=== PATIENT | male | born 1970 | race Caucasian/White ===

== ENCOUNTER 2017-03-07 11:01 | Emergency (ER) | END 2017-03-07 12:32 | disposition home or self-care (01) ==

== ENCOUNTER 2018-07-19 09:44 | Day surgery (SDC) | payer BC ==
[~2018-07-19] VITALS: Ht 165.1 cm; Wt 88.0 kg
[~2018-07-19 09:44] MED LIST: FAMO-96 PO; LORA-186 PO; OMEP20CA16 PO
[2018-07-19 10:19] VITALS: BP 119/74; PULSE 85; RESP 18
[2018-07-19 10:20] VITALS: Ht 165.1 cm; Wt 88.0 kg
--- NOTE | 2018-07-19 10:42 | PREAC ---
Date/Time of Note Date/Time of Note DATE: 07/19/18 TIME: 10:42 Anesthesia Eval and Record Evaluation Time Pre-Procedure Interview DATE: 07/19/18 TIME: 10:42 Age 47 Sex male NPO: 8 hrs Preoperative diagnosis abd pain rectal bleeding Planned procedure egd colonoscopy Past Medical History Past Medical History: None Surgery & Anesthesia Issues No known issue Meds Anticoagulation: No Beta Mike within 24 hr: No Reason Beta Mike not given: Pt. not on B-Mike Active Scripts Loratadine* (Claritin*) 10 Mg Tablet, 10 MG PO DAILY, #30 TAB Prov:JESSICA CAMPOS PA-C 03/07/17 Omeprazole* (Omeprazole*) 20 Mg Capsule.dr, 20 MG PO DAILY, #20 Prov:JESSICA CAMPOS PA-C 03/07/17 Famotidine* (Pepcid*) 20 Mg Tablet, 20 MG PO DAILY for 4 Days, TAB Prov:JESSICA CAMPOS PA-C 03/07/17 Meds reviewed: Yes Allergies Coded Allergies: No Known Allergy (Unverified , 07/19/18) Allergies Reviewed: Yes Labs/Studies Labs Reviewed: Reviewed by anesthesiologist test: N/A Studies: ECG (n/a), CXR (n/a) Pre-procedure Exam Last vitals Vital Signs Date Temp Pulse Resp B/P (MAP) Pulse Ox O2 O2 Flow FiO2 Time Delivery Rate 07/19/18 96.7 85 18 119/74 98 Room Air 10:19 (89) Airway: Adequate mouth opening Mallampati: Mallampati I Teeth: Normal Lung: Normal Heart: Normal ASA Physical Status ASA physical status: 1 Emergency: None Planned Anesthetic General/MAC: MAC Pre-operative Attestations Prior to commencing anesthesia and surgery, the patient was re-evaluated, there was verification of: *The patient's identity *The results of appropriate recent lab work and preoperative vital signs *The above evaluation not changing prior to induction *Anesthetic plan, risk benefits, alternative and complications discussed with patient/family; questions answered; patient/family understands, accepts and wishes to proceed. NIKOLAS VIRK MD July 19, 2018 10:42
[2018-07-19] MEDS ORDERED: FENTAnyl 50 MCG/ML VIAL ONE (10:43)
[2018-07-19] MEDS ORDERED: PROPOFOL 20 ML ONE ×2 (10:43→11:51)
[2018-07-19] MEDS ORDERED: ONDANSETRON 4 MG INJ IV PRN (11:00)
[2018-07-19] MEDS ORDERED: SIMVASTATIN (11:06)
[2018-07-19] MEDS ORDERED: FLOMAX (11:06)
[2018-07-19] MEDS ORDERED: LOSARTAN (11:06)
[2018-07-19] MEDS ORDERED: [UNRECOGNIZED DRUG - OTHER] (11:06)
[2018-07-19] MEDS ORDERED: GLIPIZIDE (11:06)
[2018-07-19] MEDS ORDERED: METFORMIN (11:06)
[2018-07-19] MEDS ORDERED: FINASTERIDE (11:06)
[2018-07-19 11:36] VITALS: BP 118/83; PULSE 82; RESP 15
--- NOTE | 2018-07-19 12:51 | PAC ---
Date/Time of Note Date/Time of Note DATE: 07/19/18 TIME: 12:51 Post-Anesthesia Notes Post-Anesthesia Note Last documented vital signs Vital Signs Date Temp Pulse Resp B/P (MAP) Pulse Ox O2 O2 Flow FiO2 Time Delivery Rate 07/19/18 97.1 82 15 118/83 96 Room Air 11:36 (95) 07/19/18 96.7 10:19 Activity: WNL Respiratory function: WNL Cardiovascular function: WNL Mental status: Baseline Pain reasonably controlled: Yes Hydration appropriate: Yes Nausea/Vomiting absent: No NIKOLAS VIRK MD July 19, 2018 12:51
== END 2018-07-19 13:42 | disposition home or self-care (01) ==
LOC: GIL 09:44
PROVIDERS: ATTEND Internal Medicine Gastroenterology
DX: R19.4 Change in bowel habit (principal); K64.8 Other hemorrhoids; K29.30 Chronic superficial gastritis without bleeding; K21.9 Gastro-esophageal reflux disease without esophagitis
CPT/HCPCS: 43239; 45378; 88305; 88312; J3010; Z7610